=== PATIENT | male | born 1995 | race Two or more races ===

== ENCOUNTER 2024-03-25 09:49 | Emergency (ER) | payer MEDICAID, OTHER ==
[~2024-03-25] VITALS: Ht 175.3 cm; Wt 108.7 kg
[2024-03-25 10:32] VITALS: PULSE 84; RESP 18; O2SAT 96
[2024-03-25] MEDS: MECLIZINE HCL 25 MG TAB PO ONE (10:33)
[2024-03-25] MEDS ORDERED: MECL1TAB42 PO (10:47)
[2024-03-25 11:15] LABS: Basophils # (auto) 0.1 10 ^3/uL (0-0.2); Basophils % (auto) 0.7 % (0.0-2.0); Chloride 106 mmol/L (98-107); Eosinophils # (auto) 0.2 10 ^3/uL (0-0.8); Eosinophils % (auto) 2.7 % (0.0-7.0); Hematocrit 45.1 % (41.0-53.0); Hemoglobin 15.9 g/dL (13.5-17.5); Lymphocytes # (auto) 1.5 10 ^3/uL (0.4-5.4); Lymphocytes % (auto) 17.2 % (10.0-50.0); Mean Corpuscular Hemoglobin 31.1 pg (28.0-32.0); Mean Corpuscular Hgb Conc. 35.3 g/dL (32.0-36.0); Monocytes # (auto) 0.4 10 ^3/uL (0-1.3); Neutrophils # (auto) 6.5 10 ^3/uL (1.6-8.6); Neutrophils % (auto) 74.4 % (37.0-80.0); Nucleated Red Blood Cells % 0.1 %; Potassium 4.1 mmol/L (3.5-5.1); Red Blood Cells 5.12 10^6/uL (4.5-5.90); Red Cell Distribution Width 13.1 % (11.8-14.3); Sodium 141 mmol/L (136-145); White Blood Cell 8.7 10^3/uL (4.4-10.8)
[2024-03-25 11:16] LABS: Anion Gap 8 (5-15); Carbon Dioxide 27 mmol/L (20-30)
[2024-03-25 11:17] LABS: Calcium 10.1 mg/dL (8.7-10.4)
[2024-03-25 11:21] LABS: BUN/Creatinine Ratio 9.6 (10.0-20.0); Blood Urea Nitrogen 8 mg/dL (9-23); Glucose 114 mg/dL (74-106)
[2024-03-25 12:34] VITALS: BP 151/99; PULSE 70; RESP 16; TEMP 98; O2SAT 96
== END 2024-03-25 12:37 | disposition home or self-care (01) ==
LOC: ER 09:49
DX: R42 Dizziness and giddiness (principal); I10 Essential (primary) hypertension
CPT/HCPCS: 36415; 70450; 80048; 82962; 83880; 84484; 85025; 93005; 99284; J8597